=== PATIENT | female | born 1980 | race Hispanic/Latino ===

== ENCOUNTER 2016-11-08 16:28 | Emergency (ER) | payer OTHER ==
[~2016-11-08] VITALS: Ht 160 cm; Wt 86.4 kg
[~2016-11-08 16:28] MED LIST: NOMED
[2016-11-08 16:33] VITALS: BP 130/86; PULSE 63; RESP 16; O2SAT 98
[2016-11-08] MEDS ORDERED: TURM500C7 PO (16:39)
[2016-11-08] MEDS ORDERED: GING250C PO (16:39)
--- NOTE | 2016-11-08 16:40 | ED.REPORT ---
HPI- Female Date of Service Nov 08, 2016 ED Provider: Corin is a 36-year-old female patient with chief complaint of vaginal rash. Patient reports a two-month history of a purple and black rash on her inner thighs associated with itching, bleeding, dysuria, "slimy" vaginal discharge, frequent urination. She first noticed after she began running. Patient reports chronic abdominal pain due to Crohn's disease. Denies vaginal bleeding , (tubal ligation), fever, hematuria. States that today her hands turned purple associated with feeling cold, dizziness, nausea, diarrhea. These symptoms have resolved. PCP placed her on a single dose of medication for a yeast infection, without resolution. Seen 2 weeks ago at urgent care and diagnosed with same. Patient reports that she was treated at that time for gonorrhea and chlamydia, but tests came back negative. Nursing Notes Stated Complaint: RASH IN VAGINAL AREA Chief Complaint: General Complaint Nursing Notes Reviewed: Yes Allergies: Coded Allergies: No Known Allergies (Verified Allergy, Severe, 11/08/16) Scheduled Fluconazole (Fluconazole) 150 Mg Tablet 150 MG PO ONCE Take 1 tablet immediately. Wait at least 72 hours. Take the second tablet if your symptoms have not resolved. Sobia Root (Sobia) 250 Mg Capsule 500 MG PO DAILY Turmeric Root Extract (Turmeric) 500 Mg Capsule 1,000 MG PO DAILY Scheduled PRN Clotrimazole 2% (Gyne-Lotrimin 3 2%) 21 Gm Cream.appl 21 GM VAGINAL TID PRN PRN For Itching General Time Seen by MD: 16:39 Chief Complaint Other (vaginal rash) Sudden in Onset?: No Past Medical History Past Medical History Crohn's disease, asthma, valley fever, migraines Review of Systems General: Admits chills HEENT: Denies congestion, headache, sore throat. Respiratory: Denies dyspnea, cough, shortness of breath, wheezing. Cardiovascular: Denies chest pain, palpitations. Gastrointestinal: Admits abdominal pain, diarrhea. Denies vomiting Genitourinary: Admits dysuria, denies frequency, urgency, hematuria. Admits vaginal discharge, denies bleeding Otherwise as noted in HPI. Physical Exam General: Well appearing, well developed, well nourished, no acute distress. Head: Atraumatic, normocephalic. Eyes: No scleral icterus or injection. No discharge. Vision grossly intact. ENT: Voice clear, hearing grossly intact. Respiratory: Regular rate and rhythm. Breath sounds present, clear to auscultation and equal bilaterally. No respiratory distress. No increased work of breathing, speaks in complete sentences. Cardiovascular: Regular rate and rhythm, without murmur, gallop or rub. No pedal edema. Gastrointestinal: Abdomen flat and non-tender without guarding or rebound. Bowel sounds normoactive. Genitourinary: Normal external genitalia without lesions. White discharge noted. Redness with satellite lesions noted in intertriginous regions. Speculum examination reveals normal appearing cervix with moderate creamy discharge. No masses, friability or bleeding. Negative cervical motion tenderness, adnexal tenderness. Skin: Warm and dry. Neurological: Grossly nonfocal. Psychological: Alert and oriented. Speech appropriate, linear and logical. Behavior appropriate. Initial Vital Signs Vital Signs (First) Date Time Temp Pulse Resp B/P Pulse Ox O2 Delivery O2 Flow Rate FiO2 11/08/16 16:33 36.8 63 16 130/86 98 Room Air Initial VS: Vital signs normal Interpretation & Diagnostics Interpretation & Diagnostics: Microbiology GRISEL WET PREP VAG OR REC Final 11/08/16-173 WBCS NONE SEEN YEAST NONE SEEN CLUE CELLS NONE SEEN TRICHOMONAS NONE SEEN Lab Results Interpretation Test 11/08/16 17:30 Hold Urine Received (Received) Re-Eval/Medical Decision Med Decision/Clinical Course 60 female presents with chief complaint of vaginal itching, dysuria, rash on her thighs, vaginal discharge one month. Treated for chlamydia and gonorrhea 2 weeks ago at urgent care and diagnosed with yeast infection but apparently untreated. Patient is somewhat convoluted historian. Admits to chronic abdominal pain related to Crohn's disease which is at baseline. Vitals are normal, afebrile. Physical examination reveals redness and satellite lesions in the intertriginous areas along with white external discharge. Speculum examination reveals a normal-appearing cervix without friability or lesions, creamy discharge. Negative cervical motion tenderness, adnexal tenderness. Abdomen nontender. GC chlamydia and wet prep are sent. Urinalysis is not suggestive of urinary tract infection. test negative. I examined this patient with the help of Dr. astudillo. We believe this is most likely a yeast infection, less likely to be gonorrhea/chlamydia, PID, tubo-ovarian abscess, bacterial vaginosis. Provided prescription for oral fluconazole, topical clotrimazole. Advised regarding primary care follow-up, provided emergency return precautions. Patient verbalized understanding of, and consent to, the plan. Discharge & Departure Impression: Primary Impression: Candidiasis, intertrigo Additional Impression: Yeast infection Disposition: Home Discharge Condition All VS Reviewed: Yes Condition: Stable Patient Instructions: Vulvovaginal Candidiasis (ED) Additional Instructions: Evaluation for vaginal rash in the emergency department consisted of history and physical examination were both which are highly suggestive that this is a yeast infection. I feel that gonorrhea or chlamydia are significantly less likely. I believe you are stable and safely discharged. Samples have been sent to the lab for evaluation, and I will contact you if we get contradictory results. We will treat you for a yeast infection both inside and outside your vagina. I will write a prescription for oral fluconazole. Take one tablet today, take another in 3 days if your symptoms are not resolved. I will additionally prescribed an antifungal ointment to be applied externally 3 times a day to the affected areas. Continue treatment for 1 week after symptoms resolve. Follow-up with your primary care provider if your symptoms are not significantly improved in one week. Return to emergency department for any new or worsening symptoms including increasing pain, fever. Referrals: Usman Guillen PAC (PCP) EDSupervising Provider for APC: Favio Astudillo MD Attending Statement I saw this patient in conjunction with James Stratton PA-C. I was present for all ho portions of this patient's care. I agree with the workup, plan and disposition. Favio Astudillo MD copies to: Usman Guillen PAC Favio Astudillo MD Nov 08, 2016 16:40 James Stratton PA-C Nov 08, 2016 16:56 Favio Astudillo MD Nov 08, 2016 16:40 James Stratton PA-C Nov 08, 2016 16:56
[2016-11-08] MEDS ORDERED: FLUC150T3 PO (17:26)
[2016-11-08] MEDS ORDERED: CLOT21CR7 VAGINAL (17:26)
== END 2016-11-08 17:33 | disposition home or self-care (01) ==
LOC: SED 16:28
DX: B37.3 Candidiasis of vulva and vagina (principal); R30.0 Dysuria; R35.0 Frequency of micturition; R42 Dizziness and giddiness; R11.0 Nausea; R19.7 Diarrhea, unspecified; K50.90 Crohn's disease, unspecified, without complications; J45.909 Unspecified asthma, uncomplicated